=== PATIENT | female | born 1995 | race Two or more races ===

== ENCOUNTER 2020-02-25 21:09 | Emergency (ER) | payer SELFPAY ==
[2020-02-25] MEDS ORDERED: diphenhydrAMINE 50 MG Cap PO ONE (21:42)
--- NOTE | 2020-02-25 21:48 | EDM.PDOC ---
<Magali Panchal - Last Filed: 02/25/20 21:54> ED HPI GENERAL MEDICAL PROBLEM - General Chief Complaint: Allergic Reaction Stated Complaint: POSS ALLERGIC REACTION Time Seen by Provider: 02/25/20 21:21 Source of Information: Reports: Patient History Limitations: Reports: No Limitations - History of Present Illness INITIAL COMMENTS - FREE TEXT/NARRATIVE: Ms. Theodore is a 24 year-old woman with no significant medical history, who presents with complaints of glossitis, lips tingling and generalized pruritus after eating at a [employer] restaurant. She is unsure what she might have ingested. She denies throat tightness SOB, wheezing, nausea, vomiting, or urticaria. She has never had these symptoms in the past. She did not take any OTC medications for the reaction. Today in the ED the patient is hemodynamically stable and afebrile. The patient does not have a PCP. - Related Data Allergies Allergy/AdvReac Type Severity Reaction Status Date / Time No Known Allergies Allergy Verified 02/25/20 21:20 Home Meds: Home Meds EPINEPHrine [Auvi-Q] 1 injection IM ASDIRECTED PRN #1 kit 02/25/20 [Rx] Past Medical History - Past Surgical History HEENT Surgical History: Reports: Oral Surgery (Bandana Teeth) Cardiovascular Surgical History: Reports: Carotid Endarterectomy Social & Family History - Tobacco Use Tobacco Use Within Last Twelve Months: Cigars (Black & Mild) - Alcohol Use Alcohol Use History: Yes Alcohol Use in Last Twelve Months: Yes Alcohol Use Frequency: Rarely - Recreational Drug Use Recreational Drug Use: Yes Drug Use in Last 12 Months: Yes Recreational Drug Type: Reports: Marijuana/Hashish Recreational Drug Use Frequency: Not Used In Over 6 Months - Living Situation & Occupation Living situation: Reports: Single, with Significant Other 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[employer]) Course - Vital Signs Last Recorded V/S: Last Vital Signs Temp 36.3 C 02/25/20 21:27 Pulse 89 02/25/20 21:27 Resp 20 02/25/20 21:27 BP 134/94 H 02/25/20 21:27 Pulse Ox 99 02/25/20 21:27 - Orders/Labs/Meds Meds: Medications Discontinued Medications Generic Name Dose Route Start Last Admin Trade Name Freq PRN Reason Stop Dose Admin Diphenhydramine HCl 50 mg 02/25/20 21:42 02/25/20 21:45 Benadryl PO 02/25/20 21:43 50 mg ONETIME ONE Administration Departure - Departure Disposition: Home, Self-Care 01 Clinical Impression: Allergic reaction to food - Discharge Information Prescriptions: EPINEPHrine [Auvi-Q] 1 injection IM ASDIRECTED PRN #1 kit PRN Reason: Shortness Of Breath Instructions: Allergies, Adult Referrals: Venecia Kimble MD [Ordering Only Provider] - Forms: ED Department Discharge Additional Instructions: You were seen in the emergency room after developing tongue swelling and generalized itching while eating [employer] food tonight. Based on your history and physical examination, you are most likely suffering from an allergic reaction to something that you ate. You have been started on the antihistamine Benadryl. We recommend that you purchase [id number] Zyrtec, or a similar nonsedating antihistamine, and take as necessary. We recommend that you follow-up with the Nuclear Medicine Medical Director Dr. Venecia Kimble, in [place], at the next available appointment. Make sure that the office assistant receptionist knows that you are following up from the ER. As discussed, it is very important that you see the Nuclear Medicine Medical Director, to determine what it is that you are allergic to, so that you can avoid it in the future. A prescription for an epinephrine injection kit has been sent to the [facility], located just south and across the [address] from [facility]. Inject 1 injection into your anterolateral thigh for symptoms of shortness of breath with wheezing. If you inject epinephrine, it is imperative that you go to the nearest emergency room immediately. You may repeat the epinephrine after 15 minutes, if necessary. If any other problems, including worsening of your symptoms, please do not hesitate to return to the ER. Sepsis Event Note - Focused Exam Vital Signs: Vital Signs Temp Pulse Resp BP Pulse Ox 02/25/20 21:27 36.3 C 89 20 134/94 H 99 Date Exam was Performed: 02/25/20 Time Exam was Performed: 21:54 <Jose Panchal - Last Filed: 02/25/20 22:26> ED HPI GENERAL MEDICAL PROBLEM - General Source of Information: Reports: Patient, Significant Other (Boyfriend) History Limitations: Reports: No Limitations Past Medical History Respiratory History: Reports: Asthma (suspected, as a child) Endocrine/Metabolic History: Reports: Obesity/BMI 30+ - Past Surgical History HEENT Surgical History: Reports: Oral Surgery Cardiovascular Surgical History: Denies: Carotid Endarterectomy Social & Family History - Tobacco Use Tobacco Use Within Last Twelve Months: Cigars (1/2 a Black & Mild per day) - Caffeine Use Caffeine Use: Reports: Tea - Alcohol Use Alcohol Use History: Yes Alcohol Use Frequency: Rarely - Recreational Drug Use Recreational Drug Use: Yes Drug Use in Last 12 Months: Yes Recreational Drug Type: Reports: Marijuana/Hashish (last smoked Jul 2019) - Living Situation & Occupation Living situation: Reports: Single, with Significant Other (Boyfriend) Occupation: Employed ED ROS ALLERGIC REACTION - Review of Systems Review Of Systems: Comprehensive ROS is negative, except as noted in HPI. ED EXAM GENERAL NO PERIP PULSE - Physical Exam Exam: See Below Exam Limited By: No Limitations General Appearance: Alert, WD/WN, No Apparent Distress Eye Exam: Bilateral Eye: EOMI, Normal Inspection Ears: Normal External Exam, Normal Canal, Hearing Grossly Normal, Normal TMs Nose: Normal Inspection, Normal Mucosa, No Blood Throat/Mouth: Normal Inspection, Normal Lips (no swelling), Normal Teeth, Normal Gums, Normal Voice, No Airway Compromise, Other (Tongue swelling and a tongue stud. No uvular swelling. No oropharyngeal airway obstruction.) Head: Atraumatic, Normocephalic Neck: Normal Inspection, Supple, Non-Tender, Full Range of Motion. No: Lymphadenopathy (L), Lymphadenopathy (R) Respiratory/Chest: No Respiratory Distress, Lungs Clear, Normal Breath Sounds, No Accessory Muscle Use. No: Decreased Breath Sounds, Crackles, Rhonchi, Wheezing, Stridor, Prolonged Expiration Cardiovascular: Normal Peripheral Pulses, Regular Rate, Rhythm, No Edema, No Gallop, No JVD, No Murmur, No Rub GI/Abdominal: Normal Bowel Sounds, Soft, Non-Tender, No Organomegaly, No Distention, No Abnormal Bruit, No Mass (Female) Exam: Deferred Rectal (Female) Exam: Deferred Back Exam: Normal Inspection, Full Range of Motion, NT Extremities: Normal Inspection, Normal Range of Motion, No Pedal Edema, Normal Capillary Refill Neurological: Alert, Oriented, Normal Cognition, No Motor/Sensory Deficits Psychiatric: Normal Affect Skin Exam: Warm, Dry, Intact, Normal Color, No Rash (no urticaria) Course - Re-Assessments/Exams Free Text/Narrative Re-Assessment/Exam: 02/25/20 21:42 As above, the patient has glossitis, but no uvular swelling or lip swelling. No dyspnea or wheezing. While she has some generalized pruritus, no urticaria was found. She is likely suffering from a relatively mild allergic reaction to something that she ate, but I explained to her that until she has allergy testing, she can only speculate as to what it is that she is allergic to. It is imperative that she see an call center associate and determine what is she is allergic to , so that she can avoid it in the future. For today's purposes, the patient will be treated with oral Benadryl, and going forward, I am recommending that she purchase [id number] Zyrtec or similar. She will be prescribed an epinephrine pen kit, and I will refer her to an Nuclear Medicine Medical Director in [place]. 02/25/20 22:22 I evaluated the patient with Magali, and agree with her documentation. Departure - Departure Time of Disposition: 21:43 Condition: Good - Discharge Information *PRESCRIPTION DRUG MONITORING PROGRAM REVIEWED*: Not Applicable *COPY OF PRESCRIPTION DRUG MONITORING REPORT IN PATIENT HERMELINDO: Not Applicable Sepsis Event Note - Evaluation Sepsis Screening Result: No Definite Risk - Focused Exam Date Exam was Performed: 02/25/20 Time Exam was Performed: 22:25
== END 2020-02-25 22:15 | disposition home or self-care (01) ==
LOC: JD.ED 21:09
DX: T78.1XXA Other adverse food reactions, not elsewhere classified, initial encounter (principal); F17.290 Nicotine dependence, other tobacco product, uncomplicated; J45.909 Unspecified asthma, uncomplicated; E66.9 Obesity, unspecified; Z68.41 Body mass index [BMI] 40.0-44.9, adult
CPT/HCPCS: 99283; A9270; 99282